=== PATIENT | male | born 1965 | race Caucasian/White ===

== ENCOUNTER 2017-03-11 23:13 | Observation (INO) | payer MEDICARE, OTHER ==
--- NOTE | ~2017-03-11 | HP ---
History And Physical [place] [id number] [place] [place]. [address] NAME: CHARLOTTE LLOYD JR : 67 STATUS : ADM Selin PAT#: [id number] AGE: 51 ADM/REG DATE : 03/11/17 MR#: [id number] REPORT SERV DATE: 03/12/17 DICTATED BY: ILIANA KEVIN DATE: 03/12/17 REPORT STATUS : Draft TRANSCRIBED BY: MODRoseanna DATE: 03/12/17 DATE OF ADMISSION: 03/11/2017 REASON FOR ADMISSION: End-stage renal disease with hyperkalemia and noncompliance. HISTORY OF PRESENT ILLNESS: This is a very pleasant 51-year-old male patient, who dialyzes on a Saturday, Saturday, Saturday schedule at [facility]. He presents to [facility] after missing hemodialysis on his usually scheduled treatment on Saturday due to having issues with vehicle maintenance. He was noted to be hyperkalemic with a potassium of 6.1. He was placed inpatient and treated medically overnight with Kayexalate with a resultant potassium to 4.8 this morning. He is in the hemodialysis unit and will be dialyzed this morning and discharged post dialysis to home provided that he remains stable during treatment. He denies chest pain, nausea, vomiting, or diarrhea and is in no acute distress during evaluation this morning. PAST MEDICAL HISTORY: Positive for end-stage renal disease, hemodialysis pattern as listed above. History also positive for hypertension, diabetes mellitus, anemia, known history of a seizure disorder, chronic pain, and previous acute cardiac event resulting in cardiac arrest. History also positive for secondary hyperparathyroidism, depression, history of osteomyelitis. REVIEW OF SYSTEMS: Completed, please see HPI for pertinent details. SOCIAL HISTORY: No EtOH. No illicit drugs. No tobacco. ALLERGIES: HE LISTS CODEINE AN ALLERGY. ACTIVE MEDICATIONS: Include Tums four tabs four times a day with meals, Novolin 10 units subcu q.h.s. and 10 units subcu of NPH p.r.n. for blood sugars greater than 300, Novolin R p.r.n. sliding scale, Roxicodone one tab p.o. four times a day p.r.n. Undefined blood pressure and gout medications are also listed. PHYSICAL EXAMINATION: VITAL SIGNS: Blood pressure at 179/94, temperature at 97.3, respiratory rate at 17, heart rate at 79 beats per minute, he is 96% on room air. GENERAL: He is a pleasant, awake, alert and oriented x3 male, lying in bed during evaluation. HEENT: Normocephalic and atraumatic. Normal ocular movements. No scleral icterus or conjunctival pallor is appreciated. NECK: Supple without thyromegaly. No JVD. No mass. CHEST: Shows positive S1 and S2. No rubs. No gallops. LUNGS: Diminished, but clear to auscultation throughout with normal expansion and effort bilaterally. GI: Shows positive bowel sounds in all four quadrants. No appreciable mass or tenderness. : Deferred. History And Physical [address] [place]. [address] NAME: CHARLOTTE LLOYD JR : 67 STATUS : ADM Selin PAT#: [id number] AGE: 51 ADM/REG DATE : 03/11/17 MR#: [id number] REPORT SERV DATE: 03/12/17 DICTATED BY: ILIANA KEVIN DATE: 03/12/17 REPORT STATUS : Draft TRANSCRIBED BY: LUCIO DATE: 03/12/17 EXTREMITIES: Show positive pulses in all four extremities. No clubbing, cyanosis, or edema. He does have a right upper extremity access, which has a palpable bruit and thrill. SKIN: Warm, dry, and intact to visualized surfaces. Somewhat somers. No rash, lesions, or ecchymosis is noted. NEUROLOGIC: He appears to be grossly intact, nonfocal and is of appropriate mood and affect. LABORATORY DATA: Pertinent laboratories and imaging to this evaluation: Portable chest x- ray, subsegmental atelectasis in medial right lung base. Comprehensive metabolic panel: Sodium 147, potassium 4.8, chloride 108, CO2 of 21, BUN 99, creatinine 17.5, calcium 7.1, total protein 7.4, albumin 3.8, alkaline phosphatase 87, ALT and AST 21 and 24. CBC: White blood cell count 5.2, RBC 3.48, hemoglobin 10.3, hematocrit 31.3, platelets 143. IMPRESSION AND PLAN: End-stage renal disease patient, Saturday, Saturday and Saturday at [facility]. Previous medical history as listed above with difficulty with compliance with dialysis treatment, now missing recent hemodialysis due to vehicle maintenance. The patient will be dialyzed this morning to augment his care from his missed treatment yesterday. We will check an ionized calcium with a normal albumin and a depressed calcium this morning and provide coverage as needed. Home medications have been addressed and will be provided during his stay here. As he has no other complaints, he will be on observation, evaluation with admission for dialysis, and then release providing stability remains intact during his dialysis treatment. He will return to his dialysis clinic and has assured me that he can make his appointment that is on Saturday of this week, which is tomorrow. Further modification of treatment plan may be made based on clinical presentation of the patient, laboratory results, and further consultation with Renal attending. DICTATED BY: Alonso Burden NP JR/LUCIO Iliana Kevin M.D. / [id number] CC: Samm Melendrez M.D.
[2017-03-11 21:26] LABS: BASOPHILS 0.6 %; BASOPHILS ABSOLUTE 0.02 10/3/uL (0.0-0.16); EOSINOPHILS 3.6 %; EOSINOPHILS ABSOLUTE 0.11 10/3/uL (0.0-0.53); ER CBC TAT 0 Hrs 09 Mins; HEMATOCRIT 31.4 % (40.0-51.0); HEMOGLOBIN 10.5 g/dL (13.6-17.8); LYMPHOCYTES 36.9 %; LYMPHOCYTES ABSOLUTE 1.14 10/3/uL (0.67-4.30); MANUAL DIFF NO %; MEAN CORPUS HGB CONC 33.4 g/dL (32.0-36.0); MEAN CORPUSCULAR HEMOGLOB 29.7 pg (26.0-34.0); MEAN PLATELET VOLUME 9.9 fL (9.2-13.0); MONOCYTES 7.4 %; MONOCYTES ABSOLUTE 0.23 10/3/uL (0.21-1.20); NEUTROPHILS 51.5 %; NEUTROPHILS ABSOLUTE 1.59 10/3/uL (2.02-8.40); PLATELET COUNT 136 10/3/uL (150-400); RBC DISTRIBUTION WIDTH 15.2 % (12.0-16.0); RED CELL COUNT 3.53 10/6/uL (4.7-6.1); WHITE BLOOD CELLS 3.1 10/3/uL (4.5-10.5)
[2017-03-11 21:40] LABS: CHLORIDE, SERUM 102 MMOL/L (96-112); CO2 (CARBON DIOXIDE) 21 MMOL/L (24-34); SODIUM, SERUM 140 MMOL/L (135-148)
[2017-03-11 21:41] LABS: BUN (BLOOD UREA NITROGEN) 98 MG/DL (6-23); CALCIUM, SERUM 6.7 MG/DL (8.5-10.4); GFR AFRICAN AMERICAN 3 ML/MIN (>=60); GFR NON AFRICAN AMERICAN 3 ML/MIN (>=60); GLUCOSE, SERUM 267 MG/DL (60-99); POTASSIUM, SERUM 6.1 MMOL/L (3.5-5.3)
[~2017-03-11 23:13] MED LIST: *UNABLE1; ALBUTEROL5 INH; ALLOPURINOL PO; APRES10B PO; AT25 PO; ATARAX50B PO; BLOOD PRESSURE MED; BLOOD PRESSURE MED PO; CAT1 PO; CELEXA PO; CELEXA20 PO; COREG12 PO; COREG6 PO; DIPHENCR TOP; GLUCAGON IM; GLUCAGON SC; HUMALOG SC; HUMULIN N1 ML SC; HUMULIN R1 ML SC; HYDROCORT12 EX; HYDROCORTISONE PO; INSNOVN SC; INSNOVR SC; LANTUS SC; LORTAB10 PO; MSCONT15 PO; NEO-OINT; NEO-OINT TOP; NORV10 PO; NOVOLOG SC; NOVOLOGMIX SC; OPANA ER10 MG PO; OPANA10 MG PO; PHOSLO PO; PRILO PO; PRILOSEC PO; PRILOSEC40 MG PO; PRIN20 PO; PROAMAT5 PO; PROVENTSOL INH; REM15 PO; RENAGEL PO; RENAGEL800 PO; RENVELA PO; RENVELA800 MG PO; ROXICODONE15 MG PO; ROXICODONE30 MG PO; SEVE800T PO; TUMS E-X750 M2 PO; TUMSROLL PO; VALIUM10 MG PO; Z300 PO
[2017-03-11] MEDS ORDERED: INSNOVR SC (23:17)
[2017-03-11] MEDS ORDERED: INSNOVN SC ×2 (23:17→23:18)
[2017-03-11] MEDS ORDERED: ROXICODONE PO (23:19)
[2017-03-11] MEDS ORDERED: NORV10 PO (23:20)
[2017-03-11] MEDS ORDERED: Z300 PO (23:21)
[2017-03-11] MEDS ORDERED: TUMSROLL PO (23:21)
[2017-03-12 04:47] LABS: BASOPHILS 0.4 %; BASOPHILS ABSOLUTE 0.02 10/3/uL (0.0-0.16); EOSINOPHILS 1.5 %; EOSINOPHILS ABSOLUTE 0.08 10/3/uL (0.0-0.53); HEMATOCRIT 31.3 % (40.0-51.0); HEMOGLOBIN 10.3 g/dL (13.6-17.8); IMMATURE GRANULOCYTES 0.2 %; IMMATURE GRANULOCYTES ABSOLUTE 0.01 10/3/uL (0.0-0.11); LYMPHOCYTES 13.5 %; MEAN CORPUS HGB CONC 32.9 g/dL (32.0-36.0); MEAN CORPUSCULAR HEMOGLOB 29.6 pg (26.0-34.0); MEAN CORPUSCULAR VOLUME 89.9 fL (80-100); MEAN PLATELET VOLUME 9.8 fL (9.2-13.0); MONOCYTES 7.9 %; MONOCYTES ABSOLUTE 0.41 10/3/uL (0.21-1.20); NEUTROPHILS 76.5 %; NEUTROPHILS ABSOLUTE 3.95 10/3/uL (2.02-8.40); PLATELET COUNT 143 10/3/uL (150-400); RED CELL COUNT 3.48 10/6/uL (4.7-6.1)
[2017-03-12 04:49] LABS: MANUAL DIFF NO %; WHITE BLOOD CELLS 5.2 10/3/uL (4.5-10.5)
[2017-03-12 05:07] LABS: A/G RATIO 1.1 (0.7-1.9); ALBUMIN 3.8 G/DL (3.5-5.0); BUN (BLOOD UREA NITROGEN) 99 MG/DL (6-23); CALCIUM, SERUM 7.1 MG/DL (8.5-10.4); CHLORIDE, SERUM 108 MMOL/L (96-112); CO2 (CARBON DIOXIDE) 21 MMOL/L (24-34); GLOBULIN 3.6 G/DL (2.5-4.1); SGOT(AST) 24 U/L (5-40); SGPT(ALT) 21 U/L (5-65); TOTAL BILIRUBIN 0.4 MG/DL (0-1.2); TOTAL PROTEIN 7.4 G/DL (6.0-8.5)
[2017-03-12 05:10] LABS: ALKALINE PHOSPHATASE 87 U/L (45-117); GFR AFRICAN AMERICAN 3 ML/MIN (>=60); GFR NON AFRICAN AMERICAN 3 ML/MIN (>=60); GLUCOSE, SERUM 94 MG/DL (60-99); POTASSIUM, SERUM 4.8 MMOL/L (3.5-5.3); SODIUM, SERUM 147 MMOL/L (135-148)
[2017-06-06] MEDS ORDERED: Z300 PO (05:04)
[2017-06-06] MEDS ORDERED: NORV10 PO (05:05)
[2017-06-06] MEDS ORDERED: INSNOVN SC (05:06)
[2017-06-06] MEDS ORDERED: INSNOVR SC (05:08)
[2017-06-06] MEDS ORDERED: MOBIC15 MG PO (05:09)
[2017-06-06] MEDS ORDERED: *UNABLE1 (05:12)
[2017-06-06] MEDS ORDERED: REM15 PO (12:26)
[2017-06-06] MEDS ORDERED: PRILO PO (13:17)
[2017-06-06] MEDS ORDERED: NOVOLOG SC ×2 (13:22)
[2017-06-06] MEDS ORDERED: TUMSROLL PO (13:27)
[2017-06-06] MEDS ORDERED: MORPHINE (13:30)
[2017-06-06] MEDS ORDERED: OXYCOD PO (13:30)
[2017-06-07] MEDS ORDERED: INSNOVN SC (13:22)
[2017-06-07] MEDS ORDERED: PROVHFA INH (13:24)
[2017-06-07] MEDS ORDERED: NOVOLOG SC (13:25)
== END 2017-03-12 15:44 | disposition home or self-care (01) ==
LOC: ER 23:13 → 7NO 23:27
PROVIDERS: Emergency Medicine
DX: I12.0 Hypertensive chronic kidney disease with stage 5 chronic kidney disease or end stage renal disease (principal); E11.22 Type 2 diabetes mellitus with diabetic chronic kidney disease; N18.6 End stage renal disease; D63.1 Anemia in chronic kidney disease; K21.9 Gastro-esophageal reflux disease without esophagitis; G40.909 Epilepsy, unspecified, not intractable, without status epilepticus; F32.9 Major depressive disorder, single episode, unspecified; E21.1 Secondary hyperparathyroidism, not elsewhere classified; Z88.5 Allergy status to narcotic agent; Z79.4 Long term (current) use of insulin; Z99.2 Dependence on renal dialysis; Z79.899 Other long term (current) drug therapy
CPT/HCPCS: 71010; 80048; 80053; 82330; 82962; 85025; 93005; 96374; 99285; A9270-GY; G0257; G0378; J0610